=== PATIENT | male | born 1965 | race Caucasian/White ===

== ENCOUNTER 2019-04-14 09:16 | Outpatient (CLI) | payer BC, SELFPAY ==
[2019-04-14 12:24] LABS: HCT 41.8 % (40.0-50.0); HGB 14.4 g/dL (13.5-17.5); Mean Corp. HGB Concentration 34.4 g/dL (32.0-36.0); Mean Corpuscular Hemoglobin 30.8 pg (27.0-33.0); Mean Corpuscular Volume 89.3 fL (80-95); Mean Platelet Volume 10.1 fL (8.0-11.0); Platelet Count 254 x1000/uL (130-400); RBC 4.68 m/cumm (4.50-6.00); RBC Distribution Width 13.3 % (11.8-14.1); White Blood Cell Count 6.17 k/cumm (4.4-10.8)
[2019-04-14 12:44] LABS: ALT 42 U/L (12-78); AST 27 U/L (15-37); Albumin 3.6 g/dL (3.4-5.0); Alkaline Phosphatase 96 U/L (46-116); Anion Gap 9.4 mmol/L (3-11); BUN 15 mg/dL (7-18); Bilirubin, Total 0.6 mg/dL (0.2-1.0); CO2 26.6 mmol/L (21.0-32.0); CREATININE 0.96 mg/dL (0.70-1.30); Calcium 8.8 mg/dL (8.5-10.1); Calculated LDL 131 mg/dL; Chloride 107 mmol/L (98-107); Cholesterol 193 mg/dL (50-200); Glucose 97 mg/dL (70-100); HDL Cholesterol 43 mg/dL (40-60); Potassium 4.5 mmol/L (3.5-5.1); Sodium 143 mmol/L (136-145); Total Protein 7.2 g/dL (6.4-8.2); Triglyceride 95 mg/dL (30-150)
== END 2019-04-14 09:36 ==
PROVIDERS: PCP Family Medicine; Visit Provider Family Medicine
DX: Z00.00 Encounter for general adult medical examination without abnormal findings (principal); Z82.49 Family history of ischemic heart disease and other diseases of the circulatory system; Z13.220 Encounter for screening for lipoid disorders; Z13.228 Encounter for screening for other metabolic disorders
CPT/HCPCS: 36415; 80053; 80061; 83721; 85027

== ENCOUNTER 2021-05-30 03:20 | Outpatient (CLI) | payer BC, SELFPAY ==
[2021-05-30 13:53] LABS: Calculated LDL 130 mg/dL (<100); Cholesterol 195 mg/dL (<200); HDL Cholesterol 44 mg/dL (40-60); Triglyceride 105 mg/dL (<150)
[2021-05-30 23:42] LABS: PSA, Screening 1.4 ng/mL (0.0-3.5)
== END 2021-05-30 03:21 | disposition home or self-care (01) ==
LOC: LBO 03:20
PROVIDERS: PCP Nurse Practitioner Family; Visit Provider Nurse Practitioner Family
DX: Z13.220 Encounter for screening for lipoid disorders (principal); Z13.1 Encounter for screening for diabetes mellitus; Z12.5 Encounter for screening for malignant neoplasm of prostate
CPT/HCPCS: 36415; 80061; 84153; 83036

== ENCOUNTER 2023-09-06 01:39 | Outpatient (CLI) | payer BC, SELFPAY ==
[2023-09-06 12:28] LABS: Hemoglobin A1C 4.9 % (<5.7)
[2023-09-06 12:37] LABS: ALT 29 U/L (16-63); AST 17 U/L (15-37); Albumin 3.5 g/dL (3.4-5.0); Alkaline Phosphatase 89 U/L (46-116); Anion Gap 7.6 mmol/L (3-11); BUN 13 mg/dL (7-18); Bilirubin, Total 0.6 mg/dL (0.2-1.0); CO2 28.4 mmol/L (21.0-32.0); Calcium 9.4 mg/dL (8.5-10.1); Calculated LDL 144 mg/dL (<100); Chloride 105 mmol/L (98-107); Cholesterol 212 mg/dL (<200); Estimated GFR 87.78 (mL/min/1.73m2); Glucose 109 mg/dL (74-106); HDL Cholesterol 47 mg/dL (40-60); Potassium 4.1 mmol/L (3.5-5.1); Sodium 141 mmol/L (136-145); Total Protein 7.5 g/dL (6.4-8.2); Triglyceride 108 mg/dL (<150)
== END 2023-09-06 01:40 | disposition home or self-care (01) ==
LOC: LOS 01:40
PROVIDERS: PCP Nurse Practitioner Family; Visit Provider Nurse Practitioner Family
DX: Z13.220 Encounter for screening for lipoid disorders (principal); E66.9 Obesity, unspecified; Z13.1 Encounter for screening for diabetes mellitus
CPT/HCPCS: 36415; 80053; 80061; 83036

== ENCOUNTER 2024-09-02 02:42 | Outpatient (CLI) | payer BC, SELFPAY ==
[2024-09-02 12:37] LABS: Calculated LDL 148 mg/dL (<100); Cholesterol 221 mg/dL (<200); HDL Cholesterol 56 mg/dL (40-60); Triglyceride 85 mg/dL (<150)
[2024-09-02 19:03] LABS: PSA, Screening 1.6 ng/mL (<=3.5)
== END 2024-09-02 02:43 | disposition home or self-care (01) ==
LOC: LOS 02:42
PROVIDERS: PCP Nurse Practitioner Family; Visit Provider Nurse Practitioner Family
DX: Z13.1 Encounter for screening for diabetes mellitus (principal); Z13.220 Encounter for screening for lipoid disorders; Z12.5 Encounter for screening for malignant neoplasm of prostate
CPT/HCPCS: 36415; 80061; 84153; 83036